=== PATIENT | female | born 1955 | race Caucasian/White ===

== ENCOUNTER → 2017-03-14 | Outpatient (CLI) | payer OTHER | END | disposition home or self-care (01) | LOC: CDC 14:34 | DX: Z01.810 Encounter for preprocedural cardiovascular examination (principal); M25.571 Pain in right ankle and joints of right foot | CPT/HCPCS: 93000 ==

== ENCOUNTER 2017-10-14 18:15 | Emergency (ER) | payer OTHER ==
[~2017-10-14] VITALS: Ht 147.3 cm; Wt 49.5 kg
[2017-10-14] MEDS ORDERED: ROBAXIN750 MG PO (20:43)
[2017-10-14] MEDS ORDERED: NORCO 5/3251 TABLET PO (20:43)
[2017-10-14 21:41] VITALS: BP 164/89
== END 2017-10-14 21:41 | disposition home or self-care (01) ==
LOC: EME 18:15
DX: S46.911A Strain of unspecified muscle, fascia and tendon at shoulder and upper arm level, right arm, initial encounter (principal); S40.012A Contusion of left shoulder, initial encounter; W10.9XXA Fall (on) (from) unspecified stairs and steps, initial encounter; I10 Essential (primary) hypertension; F41.9 Anxiety disorder, unspecified; F32.9 Major depressive disorder, single episode, unspecified; Z88.0 Allergy status to penicillin; Z88.8 Allergy status to other drugs, medicaments and biological substances
CPT/HCPCS: 73030; 99281; 99284

== ENCOUNTER → 2017-11-13 | Outpatient (CLI) | payer OTHER ==
[~2017-11-13] MED LIST: AMBIEN5 MG PO; CALCIUM 500 MG1 EACH PO; MOTRIN800 MG PO; MULTIPLE VITAM1 EAC1 PO; NORCO 5/3251 TABLET PO; NORVASC10 MG PO; ROBAXIN750 MG PO; TYLENOL EXTRA500 MG PO; VITAMIN D31000 UNI2 PO
== END | disposition home or self-care (01) ==
LOC: CDC 10:31
DX: Z01.810 Encounter for preprocedural cardiovascular examination (principal); M25.571 Pain in right ankle and joints of right foot; T84.196A Other mechanical complication of internal fixation device of bone of right lower leg, initial encounter; R94.31 Abnormal electrocardiogram [ECG] [EKG]
CPT/HCPCS: 93000

== ENCOUNTER → 2017-11-14 | Outpatient (CLI) | payer OTHER ==
[~2017-11-14] VITALS: Ht 147.3 cm; Wt 47.6 kg
== END | disposition home or self-care (01) ==
LOC: OPR 07:30
DX: M19.012 Primary osteoarthritis, left shoulder (principal); M19.011 Primary osteoarthritis, right shoulder; F40.240 Claustrophobia

== ENCOUNTER 2018-01-15 13:43 | Emergency (ER) | payer OTHER ==
[~2018-01-15] VITALS: Ht 147.3 cm; Wt 50.8 kg
[2018-01-15 14:17] LABS: HEMATOCRIT 39.2 % (36.0-46.0); HEMOGLOBIN 12.8 G/DL (11.9-15.5); MCH 28.8 PG (29.0-34.0); MCHC 32.7 G/DL (30.0-36.0); MCV 88.1 FL (83-99); PLATELET COUNT 367 K/uL (156-360); RBC DIS.WIDTH-CV 13.6 % (11.8-14.6); RED BLOOD COUNT 4.45 M/uL (3.80-5.20); WHITE BLOOD COUNT 5.3 K/uL (4.1-10.2)
[2018-01-15 14:26] LABS: CHLORIDE 105 mEq/L (99-109); POTASSIUM 4.2 mEq/L (3.7-5.4); SODIUM 140 mEq/L (136-147)
[2018-01-15 14:28] LABS: GLUCOSE 123 mg/dL (70-99)
[2018-01-15 14:32] LABS: CREATININE 0.8 mg/dL (0.6-1.3); GFR ESTIMATE (CALCULATED) > 59 mL/min/
[2018-01-15 14:33] LABS: UREA NITROGEN (BUN) 16 mg/dL (9-23)
[2018-01-15 14:39] LABS: TROP-I INTERPRETATION NEGATIVE; TROPONIN-I < 0.01 ng/mL (0.0-0.30)
[2018-01-15 17:16] VITALS: BP 111/77
== END 2018-01-15 17:20 | disposition home or self-care (01) ==
LOC: EME 13:43
PROVIDERS: Emergency Medicine
DX: R55 Syncope and collapse (principal); E86.0 Dehydration; F41.9 Anxiety disorder, unspecified; F32.9 Major depressive disorder, single episode, unspecified; Z86.73 Personal history of transient ischemic attack (TIA), and cerebral infarction without residual deficits; Z87.891 Personal history of nicotine dependence; Z88.0 Allergy status to penicillin; Z88.8 Allergy status to other drugs, medicaments and biological substances
CPT/HCPCS: 70450; 71045; 80048; 82948; 84484; 85027; 93005; 99281; 99285